=== PATIENT | male | born 1985 | race Caucasian/White ===

== ENCOUNTER 2019-10-16 11:38 | Observation (INO) | payer OTHER ==
[~2019-10-16] VITALS: Ht 188 cm; Wt 152.4 kg
[~2019-10-16 11:38] MED LIST: ACETAMINOPHEN-1 EAC1 PO; AMBESOL; AMOXICILLIN 50500 MG PO; AMOXICILLIN875 MG PO; BACTRIM DS TAB1 EACH PO; BENADRYL25 MG PO; BUTALB-APAP-CA1 EACH PO; CLEOCIN HCL150 MG PO; CLEOCIN HCL300 MG PO; DOXYCYCLINE 10100 MG PO; HYDROCODONE-AP1 EAC6 PO; HYDROCODONE-APA1 TA1 PO; HYDROCORTISONE 01 OZ TP; IBUPROFEN 800800 M1 PO; NAPROSYN500 MG PO; NOHOMEMEDICATIONS; NORCO 5-325 TA1 EACH PO; PENICILLIN V P500 MG PO; PENICILLIN VK250 MG PO; PENICILLIN VK500 M1 PO; PENICILLIN VK500 MG PO; PREDNISONE 20 M20 M1 PO; ROBAXIN 750 MG750 M1 PO; ULTRAM 50MG TAB50 MG PO; VENTOLIN HFA INH8 GM INH; VISTARIL 25 MG25 M1 PO; VITAMINC500 PO
[2019-10-16 11:45] VITALS: BP 137/81
[2019-10-16 12:24] LABS: ABSOLUTE BASOPHILS 0.1 thou/uL (0.0-0.2); ABSOLUTE EOSINOPHILS 0.2 thou/uL (0.0-0.7); ABSOLUTE LYMPHOCYTES 1.4 thou/uL (0.8-5.3); ABSOLUTE MONOCYTES 0.6 thou/uL (0.0-1.2); ABSOLUTE NEUTROPHILS 8.9 thou/uL (1.6-8.1); BASOPHILS 0.8 %; EOSINOPHILS 1.4 %; HEMATOCRIT 46.5 % (42.0-52.0); HEMOGLOBIN 16.3 gm/dL (14.0-18.0); LYMPHOCYTES 12.6 %; MCH 30.9 pg (26.0-34.0); MCHC 35.1 g/dL (28.0-37.0); MCV 88.1 fL (80.0-100.0); MONOCYTES 5.4 %; MPV 8.8 fl. (7.2-11.1); NUCLEATED RBCS 0 /100WBC; PLATELET COUNT* 231 thou/uL (150-400); POLYS 79.8 %; RBC 5.28 mil/uL (4.50-6.00); RDW-CV 13.7 % (10.5-14.5); WBC 11.2 thou/uL (4.0-11.0)
[2019-10-16 12:37] LABS: CALCIUM 8.5 mg/dL (8.5-10.1); POTASSIUM 4.2 mmol/L (3.5-5.1)
[2019-10-16 12:41] LABS: ALBUMIN 3.9 g/dL (3.4-5.0); TOTAL BILIRUBIN 0.6 mg/dL (<0.1-1.0); TOTAL PROTEIN 7.1 g/dL (6.4-8.2)
[2019-10-16 14:58] VITALS: BP 121/61
[2019-10-16 15:23] LABS: URINE BILIRUBIN NEGATIVE (Negative); URINE BLOOD NEGATIVE (Negative); URINE CLARITY CLEAR; URINE COLOR YELLOW; URINE GLUCOSE-RANDOM NEGATIVE (Negative); URINE KETONES NEGATIVE (Negative); URINE LEUKOCYTES-REFLEX NEGATIVE (Negative); URINE NITRITE-REFLEX NEGATIVE (Negative); URINE PROTEIN NEGATIVE (Negative); URINE SPECIFIC GRAVITY <= 1.005 (1.005-1.030); URINE UROBILINOGEN 0.2 E.U./dl (0.2-1.0)
[2019-10-16 16:00] VITALS: BP 102/46
[2019-10-16 19:30] VITALS: BP 110/60
[2019-10-16 23:30] VITALS: BP 105/50
[2019-10-17 05:23] LABS: CALCIUM 7.6 mg/dL (8.5-10.1); MAGNESIUM 1.7 mg/dL (1.8-2.4); POTASSIUM 3.9 mmol/L (3.5-5.1)
[2019-10-17 08:00] VITALS: BP 124/63
[2019-10-17 10:55] VITALS: BP 124/63
== END 2019-10-17 14:00 | disposition home or self-care (01) ==
LOC: M.ERS 11:38 → M.2W 13:39 → M.TBA-ER 13:39 → M.2W 15:20
PROVIDERS: Physician Assistant; ADMIT Internal Medicine
DX: K56.609 Unspecified intestinal obstruction, unspecified as to partial versus complete obstruction (principal); R11.2 Nausea with vomiting, unspecified; R19.7 Diarrhea, unspecified; J45.909 Unspecified asthma, uncomplicated; E66.9 Obesity, unspecified; I10 Essential (primary) hypertension; F17.210 Nicotine dependence, cigarettes, uncomplicated; M19.90 Unspecified osteoarthritis, unspecified site; D72.829 Elevated white blood cell count, unspecified; E83.42 Hypomagnesemia

== ENCOUNTER 2019-12-30 15:52 | Emergency (ER) | payer OTHER ==
[~2019-12-30] VITALS: Ht 188 cm; Wt 145.2 kg
[2019-12-30 16:54] LABS: ABSOLUTE BASOPHILS 0.1 thou/uL (0.0-0.2); ABSOLUTE EOSINOPHILS 0.3 thou/uL (0.0-0.7); ABSOLUTE LYMPHOCYTES 2.4 thou/uL (0.8-5.3); ABSOLUTE MONOCYTES 0.6 thou/uL (0.0-1.2); ABSOLUTE NEUTROPHILS 4.5 thou/uL (1.6-8.1); BASOPHILS 1.3 %; EOSINOPHILS 3.9 %; HEMATOCRIT 42.3 % (42.0-52.0); HEMOGLOBIN 14.9 gm/dL (14.0-18.0); LYMPHOCYTES 30.5 %; MCH 31.7 pg (26.0-34.0); MCHC 35.2 g/dL (28.0-37.0); MCV 89.8 fL (80.0-100.0); MONOCYTES 8.1 %; MPV 8.9 fl. (7.2-11.1); NUCLEATED RBCS 0 /100WBC; PLATELET COUNT* 202 thou/uL (150-400); POLYS 56.2 %; RBC 4.71 mil/uL (4.50-6.00); RDW-CV 14.1 % (10.5-14.5)
[2019-12-30 17:05] LABS: CALCIUM 8.1 mg/dL (8.5-10.1); CREATININE 1.1 mg/dL (0.6-1.3); POTASSIUM 3.7 mmol/L (3.5-5.1)
[2019-12-30 17:20] LABS: ALBUMIN 3.5 g/dL (3.4-5.0); TOTAL BILIRUBIN 0.3 mg/dL (<0.1-1.0); TOTAL PROTEIN 6.2 g/dL (6.4-8.2)
[2019-12-30] MEDS ORDERED: NAPROSYN500 MG PO ×2 (18:04→18:07)
[2019-12-30] MEDS ORDERED: NORCO 5-325 TA1 EAC2 PO (18:04)
[2019-12-30] MEDS ORDERED: MEDROLDOSEPACK PO ×2 (18:04→18:07)
[2019-12-30 18:22] VITALS: BP 125/63
== END 2019-12-30 18:24 | disposition home or self-care (01) ==
LOC: M.ERS 15:52
PROVIDERS: Nurse Practitioner Family
DX: G56.03 Carpal tunnel syndrome, bilateral upper limbs (principal); M54.5 Low back pain; R60.9 Edema, unspecified; I10 Essential (primary) hypertension; E66.9 Obesity, unspecified; J45.909 Unspecified asthma, uncomplicated; Z68.41 Body mass index [BMI] 40.0-44.9, adult; Z87.891 Personal history of nicotine dependence

== ENCOUNTER 2020-08-13 18:15 | Emergency (ER) | payer OTHER ==
[~2020-08-13] VITALS: Ht 188 cm; Wt 142.9 kg
[~2020-08-13 18:15] MED LIST changes: +MEDROLDOSEPACK PO; +NORCO 5-325 TA1 EAC2 PO
[2020-08-13] MEDS ORDERED: PREDNISONE 20 M20 MG PO (19:17)
[2020-08-13] MEDS ORDERED: PROAIR HFA8.5 GM INH (19:17)
[2020-08-13] MEDS ORDERED: ALBUTEROL2.5 MG/31 INH (19:17)
[2020-08-13 19:47] VITALS: BP 149/66
== END 2020-08-13 19:47 | disposition home or self-care (01) ==
LOC: M.ERS 18:15
DX: J45.901 Unspecified asthma with (acute) exacerbation (principal); Z20.822 Contact with and (suspected) exposure to COVID-19; J44.9 Chronic obstructive pulmonary disease, unspecified; I10 Essential (primary) hypertension; E66.9 Obesity, unspecified; Z68.41 Body mass index [BMI] 40.0-44.9, adult; Z87.891 Personal history of nicotine dependence

== ENCOUNTER 2020-11-23 09:11 | Emergency (ER) | payer OTHER ==
[~2020-11-23] VITALS: Ht 188 cm; Wt 127.0 kg
[~2020-11-23 09:11] MED LIST changes: +ALBUTEROL2.5 MG/31 INH; +PREDNISONE 20 M20 MG PO; +PROAIR HFA8.5 GM INH
[2020-11-23] MEDS ORDERED: CEPHALEXIN500 MG PO (10:04)
[2020-11-23] MEDS ORDERED: MUPIROCIN15 GM TOP (10:04)
[2020-11-23 10:10] VITALS: BP 152/85
== END 2020-11-23 10:10 | disposition home or self-care (01) ==
LOC: M.ERS 09:11
DX: L01.09 Other impetigo (principal); J45.909 Unspecified asthma, uncomplicated; E66.9 Obesity, unspecified; Z87.891 Personal history of nicotine dependence

== ENCOUNTER 2020-12-25 09:23 | Emergency (ER) | payer OTHER ==
[~2020-12-25] VITALS: Ht 188 cm; Wt 136.1 kg
[~2020-12-25 09:23] MED LIST changes: +CEPHALEXIN500 MG PO; +MUPIROCIN15 GM TOP
[2020-12-25 09:25] VITALS: BP 149/80
[2020-12-25] MEDS ORDERED: PROAIR HFA8.5 GM INH (09:36)
[2020-12-25] MEDS ORDERED: LONHALA MA25 MCG/1 M INH (09:39)
== END 2020-12-25 10:08 | disposition home or self-care (01) ==
LOC: M.ERS 09:23
DX: S06.0X0A Concussion without loss of consciousness, initial encounter (principal); I10 Essential (primary) hypertension; J44.9 Chronic obstructive pulmonary disease, unspecified; E66.9 Obesity, unspecified; Z68.38 Body mass index [BMI] 38.0-38.9, adult; Z87.891 Personal history of nicotine dependence; V49.49XA Driver injured in collision with other motor vehicles in traffic accident, initial encounter; Y93.89 Activity, other specified; Y92.89 Other specified places as the place of occurrence of the external cause; Y99.8 Other external cause status